=== PATIENT | female | born 1975 | race Caucasian/White ===

== ENCOUNTER 2022-03-12 16:27 | Observation (INO) | payer OTHER ==
[2022-03-12 19:09] VITALS: BMI 40.3
[2022-03-12] MEDS ORDERED: hydrALAZINE 20 MG/ML VIAL SLOW IVP PRN (19:21)
[2022-03-12] MEDS ORDERED: Dextrose 50% Abboject 50 ML SYRINGE SLOW IVP PRN (19:21)
[2022-03-12] MEDS ORDERED: Promethazine HCl 25 MG/ML VIAL IM PRN (19:21)
[2022-03-12] MEDS ORDERED: Ondansetron PF 4 MG/2 ML Vial IVP PRN (19:21)
[2022-03-12] MEDS ORDERED: Dextrose 5% in Water 1,000 ML IV PRN (19:21)
[2022-03-12] MEDS: HYDROcodone/Acetaminophen 7.5/325 mg Tablet PO PRN (20:03)
[2022-03-12] MEDS: D5 1/2 NS w/20 mEq KCL 1,000 ML IV SCH (20:03)
[2022-03-12] MEDS: Morphine 4 MG/ML VIAL SLOW IVP PRN ×3 (20:04→23:35)
[2022-03-12] MEDS: Famotidine 20 MG TAB PO SCH (20:05)
[2022-03-12] MEDS ORDERED: Cyclobenzaprine 10 MG TAB PO PRN (21:40)
[2022-03-12] MEDS ORDERED: Ketorolac Tromethamine 30 MG/ML VIAL IVP SCH (21:45)
[2022-03-12] MEDS: Famotidine/PF 20 mg/2ml Vial SLOW IVP SCH (22:07)
[2022-03-12] MEDS: Acetaminophen 325 MG TAB PO SCH (22:07)
[2022-03-12] MEDS: CEFAZOLIN 2 GM in Sodium Chloride 0.9% 100 ML IVPB SCH (22:08)
[2022-03-12 22:10] LABS: INR-International Normal Ratio 0.9; PTT 29.1 sec (22.9-36.1); Prothrombin Time 12.7 sec (12.0-14.7)
[2022-03-12] MEDS ORDERED: Gabapentin 300 MG CAP PO SCH (22:15)
[2022-03-12 22:18] LABS: ALT (SGPT) 11 U/L (8-55); AST (SGOT) 14 U/L (5-34); Albumin 3.7 g/dL (3.5-5.0); Alkaline Phosphatase 34 U/L (40-110); Anion Gap 14 mmol/L (10-20); BUN (Urea Nitrogen) 8 mg/dL (7.0-18.7); Bilirubin, Total 0.5 mg/dL (0.2-1.2); Calc. Creatinine Clearance 152 mL/min (70-130); Calcium 8.5 mg/dL (7.8-10.44); Carbon Dioxide 21 mmol/L (22-29); Chloride 109 mmol/L (98-107); Globulin 2.3 g/dL (2.4-3.5); Glucose 136 mg/dL (70-105); Magnesium 1.9 mg/dL (1.6-2.6); Phosphorus 3.4 mg/dL (2.3-4.7); Potassium 3.7 mmol/L (3.5-5.1); Sodium 140 mmol/L (136-145)
[2022-03-12] MEDS ORDERED: CEFAZOLIN 2 GM in Sodium Chloride 0.9% 100 ML IVPB SCH (23:30)
[2022-03-13] MEDS: Ketorolac Tromethamine 30 MG/ML VIAL IVP SCH ×3 (01:09→12:50)
[2022-03-13] MEDS ORDERED: diphenhydrAMINE 50 MG/ML VIAL IVP PRN (02:58)
[2022-03-13] MEDS: HYDROcodone/Acetaminophen 7.5/325 mg Tablet PO PRN ×2 (03:02→15:37)
[2022-03-13] MEDS: CEFAZOLIN 2 GM in Sodium Chloride 0.9% 100 ML IVPB SCH ×2 (05:04→15:12)
[2022-03-13] MEDS: D5 1/2 NS w/20 mEq KCL 1,000 ML IV SCH ×2 (05:04→15:10)
[2022-03-13] MEDS: Acetaminophen 325 MG TAB PO SCH ×3 (05:04→15:31)
[2022-03-13] MEDS: Morphine 4 MG/ML VIAL SLOW IVP PRN ×2 (05:05→07:38)
[2022-03-13 05:17] LABS: SARS-CoV-2 NAA Rapid Test Not Detected (NotDetected)
[2022-03-13] MEDS: Famotidine 20 MG TAB PO SCH (07:42)
[2022-03-13] MEDS: Gabapentin 300 MG CAP PO SCH ×2 (07:42→15:30)
[2022-03-13] MEDS ORDERED: fentaNYL Citrate/PF 100 MCG/2 ML SYRINGE ONE (07:46)
[2022-03-13] MEDS: Famotidine/PF 20 mg/2ml Vial SLOW IVP SCH (07:57)
[2022-03-13] MEDS ORDERED: Polyethylene Glycol 3350 17 GM Packet PO SCH (09:00)
[2022-03-13] MEDS ORDERED: Senokot S 8.6-50 MG TAB PO SCH (09:00)
[2022-03-13] MEDS ORDERED: Sodium Chloride 0.9% 100 ML ONE (09:15)
[2022-03-13] MEDS ORDERED: CEFAZOLIN 2 GM VIAL ONE (09:15)
[2022-03-13] MEDS ORDERED: Ketorolac Tromethamine 30 MG/ML VIAL ONE (10:10)
[2022-03-13] MEDS ORDERED: Lidocaine 1% PF 5 ML VIAL ONE (10:10)
[2022-03-13] MEDS ORDERED: PROPOFOL 200 MG/20 ML VIAL ONE (10:10)
[2022-03-13] MEDS ORDERED: Dexamethasone 20 MG/5 ML VIAL ONE (10:10)
[2022-03-13] MEDS ORDERED: Ondansetron PF 4 MG/2 ML Vial ONE (10:10)
[2022-03-13] MEDS ORDERED: Lidocaine 1% (PF) 30 ML VIAL ONE (10:41)
[2022-03-13] MEDS ORDERED: Promethazine HCl 25 MG/ML VIAL IVPB PRN (10:56)
[2022-03-13] MEDS ORDERED: Promethazine HCl 25 MG/ML VIAL IM PRN (10:56)
[2022-03-13] MEDS ORDERED: Ondansetron HCl/PF 4 MG/2 ML Vial IVP PRN (10:56)
[2022-03-13 15:44] VITALS: BP 129/82; TEMP 97.9
[2022-03-13] MEDS ORDERED: traMADol HCl 50 MG TAB PO PRN (16:29)
[2022-03-13] MEDS ORDERED: Cephalexin 250 MG CAP PO SCH (17:00)
[2022-03-14] MEDS ORDERED: Levothyroxine Sodium 112 MCG TAB PO SCH (06:00)
== END 2022-03-13 17:30 | disposition home or self-care (01) ==
LOC: SURG A 16:27 → UNDOADMIN 16:27 → INTOOBSV 16:48 → SURG A 16:48
PROVIDERS: ADMIT Surgery; ATTEND Surgery
PROC: 0X6P0Z3 Detachment at Left Index Finger, Low, Open Approach (ICD-10-PCS; principal; 2022-03-13)
DX: S68.611A Complete traumatic transphalangeal amputation of left index finger, initial encounter (principal); E03.9 Hypothyroidism, unspecified; Z79.890 Hormone replacement therapy; Z88.0 Allergy status to penicillin; Z98.84 Bariatric surgery status; Z20.822 Contact with and (suspected) exposure to COVID-19; W31.2XXA Contact with powered woodworking and forming machines, initial encounter
CPT/HCPCS: 76000; 80053; 83735; 84100; 85610; 85730; 88300; 96374; 96375; 96376; G0378; J1100; J1200; J1885; J2001; J2270; J2405; J2704; J3480; J3490; S0028; U0002